=== PATIENT | male | born 1965 | race Caucasian/White ===

== ENCOUNTER 2018-09-26 05:34 | Inpatient (IN) | payer SELFPAY ==
[~2018-09-26] VITALS: Ht 182.9 cm; Wt 99.8 kg
--- NOTE | 2018-09-26 05:43 | ED.ADGEN ---
Past History Past Medical History: Asthma, Hypertension Past Medical History Hx. of VSD- closed spontaneously? Smoking: Non-smoker Adult General Chief Complaint Chief Complaint ",, My made me come in..... I ve been having chest pain since last night... some what constant... 3-11/30.. Lt sided.. 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 ",, " I know I probably should have come in earlier... 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 sided chest pain. Pt. pain or discomfort has been constant since the [employer] ball game last night. Pain seems to be somewhat related to movement. Patient denies any trauma. Patient denies any previous episodes of angina or cardiac disease. Reportedly had a normal stress echo approximately 2 years ago. Patient does have history of previous Ventral septal defect that spontaneously closed as an adult. Patient does have a history of asthma. Recent travel to [place] on a [employer] job. 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 Did not travel outside of hospital to surrounding area while in [place]. Patient normally follows with Dr. Choudhary. No hx of trauma. Patient is extremely allergic to cats. very concerned because he never has complaints about medical issues. Review of Systems Review of Systems Constitutional: Denies fever or chills [] Eyes: Denies change in visual acuity, redness, or eye pain [] HENT: Denies nasal congestion or sore throat [] Respiratory: History of unproductive cough and some wheezing Cardiovascular: No additional information not addressed in HPI [] GI: Denies abdominal pain, nausea, vomiting, bloody stools or diarrhea [] : Denies dysuria or hematuria [] Musculoskeletal: Denies back pain or joint pain [] Integument: Denies rash or skin lesions [] Neurologic: Denies headache, focal weakness or sensory changes [] Endocrine: Denies polyuria or polydipsia [] All other systems were reviewed and found to be within normal limits, except as documented in this note. Family History Family History Noncontributory Current Medications Current Medications Current Medications Medications (Trade) Dose Ordered Sig/Aurora Start Time Stop Time Status Last Admin Dose Admin Albuterol/ Ipratropium (Duoneb) 3 ml RTQID 09/26/18 08:00 09/27/18 07:59 Aspirin (Children'S Aspirin) 81 mg DAILY 09/26/18 09:00 Famotidine (Pepcid) 20 mg DAILY 09/26/18 09:00 09/26/18 07:55 20 MG Ketorolac Tromethamine (Toradol 30mg Vial) 30 mg 1X ONCE 09/26/18 07:30 09/26/18 07:38 DC 09/26/18 07:56 30 MG Lactated Ringer's 1,000 ml @ 1,000 mls/hr Q1H 09/26/18 07:00 09/26/18 07:59 DC 09/26/18 06:45 1,000 MLS/HR Ondansetron HCl (Zofran) 4 mg PRN Q4HRS PRN 09/26/18 07:30 09/27/18 07:29 See nursing for home medications Allergies Allergies Allergies Coded Allergies Type Severity Reaction Last Updated Verified No Known Drug Allergies 09/26/18 No Severe allergy to cats Physical Exam Physical Exam Constitutional: Moderately acute distress, non-toxic appearance. [] HENT: Normocephalic, atraumatic, bilateral external ears normal, oropharynx moist, no oral exudates, nose normal. Lawrence short. Eyes: PERRLA, EOMI, conjunctiva normal, no discharge. Glasses Neck: Normal range of motion, no tenderness, supple, no stridor. [] Cardiovascular:Heart rate regular rhythm, no murmur [] Lungs & Thorax: Bilateral breath sounds equal apexes and a few scattered wheezes on auscultation [] Abdomen: Bowel sounds normal, soft, no tenderness, no masses, no pulsatile masses. [] Skin: Warm, dry, no erythema, no rash. [] Back: No tenderness, no CVA tenderness. [] Extremities: No tenderness, no cyanosis, no clubbing, ROM intact, no edema. [] No cording appreciated Neurologic: Alert and oriented X 3, normal motor function, normal sensory function, no focal deficits noted. [] Psychologic: Affect anxious, judgement normal, mood normal. [] Current Patient Data Vital Signs Vital Signs Date Time Temp Pulse Resp B/P (MAP) Pulse Ox O2 Delivery O2 Flow Rate FiO2 09/26/18 07:35 64 18 144/87 (106) 97 Room Air Lab Results Laboratory Tests Test 09/26/18 05:47 White Blood Count 6.5 x10^3/uL (4.0-11.0) Red Blood Count 5.26 x10^6/uL (4.30-5.70) Hemoglobin 15.4 g/dL (13.0-17.5) Hematocrit 45.3 % (39.0-53.0) Mean Corpuscular Volume 86 fL (79-100) Mean Corpuscular Hemoglobin 29 pg (25-35) Mean Corpuscular Hemoglobin Concent 34 g/dL (31-37) Red Cell Distribution Width 13.2 % (11.5-14.5) Platelet Count 259 x10^3/uL (140-400) Neutrophils (%) (Auto) 45 % (31-73) Lymphocytes (%) (Auto) 37 % (24-48) Monocytes (%) (Auto) 7 % (0-9) Eosinophils (%) (Auto) 9 % (0-3) H Basophils (%) (Auto) 2 % (0-3) Neutrophils # (Auto) 2.9 x10^3uL (1.8-7.7) Lymphocytes # (Auto) 2.4 x10^3/uL (1.0-4.8) Monocytes # (Auto) 0.4 x10^3/uL (0.0-1.1) Eosinophils # (Auto) 0.6 x10^3/uL (0.0-0.7) Basophils # (Auto) 0.1 x10^3/uL (0.0-0.2) Prothrombin Time 9.8 SEC (9.4-11.4) Prothrombin Time INR 1.0 (0.9-1.1) PTT 27 SEC (23-33) D-Dimer (Yoli) 0.19 mg/L (0.00-0.50) Sodium Level 143 mmol/L (136-145) Potassium Level 3.9 mmol/L (3.5-5.1) Chloride Level 106 mmol/L (98-107) Carbon Dioxide Level 27 mmol/L (21-32) Anion Gap 10 (6-14) Blood Urea Nitrogen 20 mg/dL (8-26) Creatinine 1.1 mg/dL (0.7-1.3) Estimated GFR (Cockcroft-Gault) 70.3 Glucose Level 106 mg/dL (70-99) H Calcium Level 9.3 mg/dL (8.5-10.1) Magnesium Level 2.3 mg/dL (1.8-2.4) Total Bilirubin 0.3 mg/dL (0.2-1.0) Direct Bilirubin 0.1 mg/dL (0.0-0.2) Aspartate Amino Transferase (AST) 26 U/L (15-37) Alanine Aminotransferase (ALT) 44 U/L (16-63) Alkaline Phosphatase 86 U/L (46-116) Creatine Kinase 121 U/L (39-308) Troponin I Quantitative < 0.017 ng/mL (0-0.055) ON-Njt-T-Type Natriuretic Peptide 9 pg/mL (0-124) Total Protein 6.8 g/dL (6.4-8.2) Albumin 3.7 g/dL (3.4-5.0) Lipase 135 U/L (73-393) EKG EKG My interpretation of EKG shows a sinus rhythm at 72 bpm. No findings of acute STEMI with contralateral changes.[] Radiology/Procedures Radiology/Procedures My interpretation of chest x-ray shows no acute cardiopulmonary findings. There is possibly some blunting a left closed phrenic angle, but not completely visualized by CXR. Course & Med Decision Making Course & Med Decision Making Pertinent Labs and Imaging studies reviewed. (See chart for details). Discussed presentation, testing and treatment plan with , Will add for serial enzymes and cardiology consult. [] Final Impression Final Impression 1. Chest Pain [] 2. HTN 3. Hx. VSD 4. Asthma 5. 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 Dragon Disclaimer This chart was dictated in whole or in part using Voice Recognition software in a busy, high-work load, and often noisy Emergency Department environment. It may contain unintended and wholly unrecognized errors or omissions. Discharge Summary Visit Information Final Diagnosis Problems Medical Problems: (1) Chest pain Status: Acute Brief Hospital Course Allergies Allergies Coded Allergies Type Severity Reaction Last Updated Verified No Known Drug Allergies 09/26/18 No Vital Signs Vital Signs Date Time Temp Pulse Resp B/P (MAP) Pulse Ox O2 Delivery O2 Flow Rate FiO2 09/26/18 07:35 64 18 144/87 (106) 97 Room Air Lab Results Laboratory Tests Test 09/26/18 05:47 White Blood Count 6.5 x10^3/uL (4.0-11.0) Red Blood Count 5.26 x10^6/uL (4.30-5.70) Hemoglobin 15.4 g/dL (13.0-17.5) Hematocrit 45.3 % (39.0-53.0) Mean Corpuscular Volume 86 fL (79-100) Mean Corpuscular Hemoglobin 29 pg (25-35) Mean Corpuscular Hemoglobin Concent 34 g/dL (31-37) Red Cell Distribution Width 13.2 % (11.5-14.5) Platelet Count 259 x10^3/uL (140-400) Neutrophils (%) (Auto) 45 % (31-73) Lymphocytes (%) (Auto) 37 % (24-48) Monocytes (%) (Auto) 7 % (0-9) Eosinophils (%) (Auto) 9 % (0-3) Basophils (%) (Auto) 2 % (0-3) Neutrophils # (Auto) 2.9 x10^3uL (1.8-7.7) Lymphocytes # (Auto) 2.4 x10^3/uL (1.0-4.8) Monocytes # (Auto) 0.4 x10^3/uL (0.0-1.1) Eosinophils # (Auto) 0.6 x10^3/uL (0.0-0.7) Basophils # (Auto) 0.1 x10^3/uL (0.0-0.2) Prothrombin Time 9.8 SEC (9.4-11.4) Prothromb Time International Ratio 1.0 (0.9-1.1) Activated Partial Thromboplast Time 27 SEC (23-33) D-Dimer (Yoli) 0.19 mg/L (0.00-0.50) Sodium Level 143 mmol/L (136-145) Potassium Level 3.9 mmol/L (3.5-5.1) Chloride Level 106 mmol/L (98-107) Carbon Dioxide Level 27 mmol/L (21-32) Anion Gap 10 (6-14) Blood Urea Nitrogen 20 mg/dL (8-26) Creatinine 1.1 mg/dL (0.7-1.3) Estimated GFR (Cockcroft-Gault) 70.3 Glucose Level 106 mg/dL (70-99) Calcium Level 9.3 mg/dL (8.5-10.1) Magnesium Level 2.3 mg/dL (1.8-2.4) Total Bilirubin 0.3 mg/dL (0.2-1.0) Direct Bilirubin 0.1 mg/dL (0.0-0.2) Aspartate Amino Transf (AST/SGOT) 26 U/L (15-37) Alanine Aminotransferase (ALT/SGPT) 44 U/L (16-63) Alkaline Phosphatase 86 U/L (46-116) Creatine Kinase 121 U/L (39-308) Troponin I Quantitative < 0.017 ng/mL (0-0.055) BM-Vxf-A-Type Natriuretic Peptide 9 pg/mL (0-124) Total Protein 6.8 g/dL (6.4-8.2) Albumin 3.7 g/dL (3.4-5.0) Lipase 135 U/L (73-393) Brief Hospital Course Mr. Headley is a 53 old male who presented with chest pain and HTN. Admitted Dr. Partida- and cardiology consult. Discharge Information Condition at Discharge: Stable Dischare Medications Current Medications Aspirin (Children'S Aspirin) 324 mg 1X ONCE PO Last administered on 09/26/18at 06:44; Admin Dose 324 MG; Start 09/26/18 at 07:00; Stop 09/26/18 at 07:01; Status DC Lactated Ringer's 1,000 ml @ 1,000 mls/hr Q1H IV Last administered on at 06:45; Admin Dose 1,000 MLS/HR; Start 09/26/18 at 07:00; Stop 09/26/18 at 07: 59; Status DC Ondansetron HCl (Zofran) 4 mg PRN Q4HRS PRN IV NAUSEA/VOMITING; Start 09/26/18 at 07:30; Stop 09/27/18 at 07:29 Albuterol/ Ipratropium (Duoneb) 3 ml RTQID NEB ; Start 09/26/18 at 08:00; Stop at 07:59 Aspirin (Children'S Aspirin) 81 mg DAILY PO ; Start 09/26/18 at 09:00 Famotidine (Pepcid) 20 mg DAILY PO Last administered on 09/26/18at 07:55; Admin Dose 20 MG; Start 09/26/18 at 09:00 Ketorolac Tromethamine (Toradol 30mg Vial) 30 mg 1X ONCE IV Last administered on 09/26/18at 07:56; Admin Dose 30 MG; Start 09/26/18 at 07:30; Stop 09/26/18 at 07: 38; Status DC KATHIA MARTINEZ MD Sep 26, 2018 05:42
--- NOTE | 2018-09-26 06:12 | EKG ---
[address] [address] Test Date: 2018-09-26 Test Time: 05:56:57 Pat Name: KARYNA TIM Department: Room: Gender: M Bottling Line Operator: DELFINO : 1965 Requested By: KATHIA MARTINEZ Order Number: [id number] Reading MD: Michael Camilo MD Measurements Intervals [place] Rate: 72 P: 54 NM: 168 QRS: 44 QRSD: 100 T: 38 QT: 378 QTc: 420 Interpretive Statements SINUS RHYTHM Electronically Signed On 09-26-2018 10:19:06 TELEPHONE APPOINTMENT CLERK by Michael Camilo MD
[2018-09-26 06:17] LABS: BASO # 0.1 x10^3/uL (0.0-0.2); BASO % 2 % (0-3); EOS # 0.6 x10^3/uL (0.0-0.7); EOS % 9 % (0-3); HEMATOCRIT 45.3 % (39.0-53.0); HEMOGLOBIN 15.4 g/dL (13.0-17.5); LYMPH # 2.4 x10^3/uL (1.0-4.8); LYMPH % 37 % (24-48); MEAN CORPUSCULAR HEMOGLOBIN 29 pg (25-35); MEAN CORPUSCULAR HGB CONC 34 g/dL (31-37); MEAN CORPUSCULAR VOLUME 86 fL (79-100); MONO # 0.4 x10^3/uL (0.0-1.1); MONO % 7 % (0-9); NEUT # 2.9 x10^3uL (1.8-7.7); NEUT % 45 % (31-73); PLATELET COUNT 259 x10^3/uL (140-400); RED BLOOD COUNT 5.26 x10^6/uL (4.30-5.70); RED CELL DISTRIBUTION WIDTH 13.2 % (11.5-14.5); WHITE BLOOD COUNT 6.5 x10^3/uL (4.0-11.0)
[2018-09-26 06:32] LABS: ALBUMIN 3.7 g/dL (3.4-5.0); CALCIUM 9.3 mg/dL (8.5-10.1); CREATININE 1.1 mg/dL (0.7-1.3); DIRECT BILIRUBIN 0.1 mg/dL (0.0-0.2); GFR 70.3; MAGNESIUM 2.3 mg/dL (1.8-2.4); POTASSIUM 3.9 mmol/L (3.5-5.1); TOTAL BILIRUBIN 0.3 mg/dL (0.2-1.0); TOTAL PROTEIN 6.8 g/dL (6.4-8.2)
[2018-09-26] MEDS ORDERED: ASPIRIN 81 MG TAB.CHEW PO ONE (07:00)
[2018-09-26] MEDS ORDERED: IV RINGERS SOLUTION,LACTATED 1,000 ML IV SCH (07:00)
[2018-09-26] MEDS ORDERED: ONDANSETRON PF 4 MG/2 ML VIAL. IV PRN (07:30)
[2018-09-26] MEDS ORDERED: KETOROLAC 30 MG/ML VIAL. IV ONE (07:30)
[2018-09-26] MEDS: IPRATRPIUM/ALBUTEROL 0.5/2.5MG 3 ML NEBU. NEB SCH ×2 (08:00→09:54)
--- NOTE | 2018-09-26 08:05 | RAD ---
Examination: CHEST PA LATERAL History: Chest pain and pressure. Hx asthma Comparison/Correlation: 06/12/2016 two-view chest x-ray exam Findings: PA and lateral views of the chest were obtained. Heart size and pulmonary vasculature are normal. No infiltrate or effusion. Bony structures are intact. Impression: No active disease. Electronically signed by: Fito Fuentes MD (09/26/2018 8:00 AM) [facility]
[2018-09-26 08:16] VITALS: BP 151/91
[2018-09-26 08:34] LABS: BARBITURATES NEG (NEG); BENZODIAZEPINES NEG (NEG); CANNABINOIDS NEG (NEG); COCAINE NEG (NEG); METHADONE NEG (NEG); OPIATES NEG (NEG); PHENCYCLIDINE NEG (NEG)
[2018-09-26 08:36] LABS: AMPHETAMINE/METHAMPHETAMINE NEG (NEG)
[2018-09-26 08:47] LABS: BACTERIA,URINE 0 /HPF (0-FEW); BILIRUBIN,URINE NEG (NEG); CLARITY,URINE CLEAR; COLOR,URINE YELLOW; GLUCOSE,URINE NEG (NEG); NITRITE,URINE NEG (NEG); RBC,URINE 0 /HPF (0-2); UROBILINOGEN,URINE 0.2 mg/dL (0.2 mg/dL); WBC,URINE 0 /HPF (0-4)
[2018-09-26] MEDS ORDERED: FAMOTIDINE 20 MG TABLET PO SCH (09:00)
[2018-09-26] MEDS ORDERED: ASPIRIN 81 MG TAB.CHEW PO SCH (09:00)
--- NOTE | 2018-09-26 09:29 | PDOC2 ---
CONSULT Date of Admission DATE: 09/26/18 TIME: : Reason for Consult: CP Problem List Problems Medical Problems: (1) Chest pain Status: Acute History of Present Illness Mr Headley is a 53 year old male who presented with complaints of chest pain starting last evening after the [employer]. He describes a tightness in the mid sternal area which is unrelated to exertion and non radiating and has been constant since last night. He reports prior cardiac evaluation approximately 2 years ago which was negative. He has a history of asthma and reports that he has shortness of breath off and on related to this. Shortness of breath improved with rescue inhaler which he reports using at least twice daily despite his maintenance medications. He denies any nausea, vomiting, diaphoresis. He denies congestive symptoms, palpitations, lightheadedness or syncope. He works out in the gym 3x per week without symptoms. He has previously followed with [facility] for cardiology. Past Medical History Echo 06/17/16 Mild concentric LVH. Normal systolic function with EF 55-60%. Proximal ascending aorta appears mildly dilated at 3.6cm. All valves structurally and functionally normal without significant stenosis or regurgitation. Stress echo 06/17/16 Negative for ischemia appropriate increase in ejection fraction stress ECG negative for ischemia exercise tolerance of 9.0 minutes no arrhythmia with stress adequate heart rate response Hypertensive blood pressure response no chest pain with exercise Cardiovascular: hyperipidemia Pulmonary: Asthma GI: GERD Past Surgical History right knee, right shoulder, spermatocele Family History no premature coronary disease Social History non smoker, no significant ETOH, no illicit drugs Current Medications Current Medications Aspirin (Children'S Aspirin) 324 mg 1X ONCE PO Last administered on 09/26/18at 06:44; Start 09/26/18 at 07:00; Stop 09/26/18 at 07:01; Status DC Lactated Ringer's 1,000 ml @ 1,000 mls/hr Q1H IV Last administered on at 06:45; Start 09/26/18 at 07:00; Stop 09/26/18 at 07:59; Status DC Ondansetron HCl (Zofran) 4 mg PRN Q4HRS PRN IV NAUSEA/VOMITING; Start 09/26/18 at 07:30; Stop 09/26/18 at 09:25; Status DC Albuterol/ Ipratropium (Duoneb) 3 ml RTQID NEB ; Start 09/26/18 at 08:00; Stop at 09:25; Status DC Aspirin (Children'S Aspirin) 81 mg DAILY PO ; Start 09/26/18 at 09:00; Stop at 09:25; Status DC Famotidine (Pepcid) 20 mg DAILY PO Last administered on 09/26/18at 07:55; Start 09/26/18 at 09:00; Stop 09/26/18 at 09:25; Status DC Ketorolac Tromethamine (Toradol 30mg Vial) 30 mg 1X ONCE IV Last administered on 09/26/18at 07:56; Start 09/26/18 at 07:30; Stop 09/26/18 at 07:38; Status DC Allergies: Coded Allergies: No Known Drug Allergies (Unverified , 09/26/18) Review of System as per HPI or negative General: Alert, Oriented X3, Cooperative, No acute distress HEENT: Atraumatic, EOMI, Mucous membr. moist/pink Lungs: Other (occ expiratory wheeze, otherwise clear) Heart: Regular rate, Normal S1, Normal S2, No murmurs, Other (no gallops, clicks or rubs) Abdomen: Normal bowel sounds, Soft, No tenderness Extremities: No cyanosis, No edema, Normal pulses Neuro: Normal speech, Strength at 5/5 X4 ext Psych/Mental Status: Mental status NL, Mood NL VITALS Vital Signs Date Time Temp Pulse Resp B/P (MAP) Pulse Ox O2 Delivery O2 Flow Rate FiO2 09/26/18 07:35 64 18 144/87 (106) 97 Room Air Labs Laboratory Tests Test 09/26/18 05:47 09/26/18 07:50 White Blood Count 6.5 x10^3/uL (4.0-11.0) Red Blood Count 5.26 x10^6/uL (4.30-5.70) Hemoglobin 15.4 g/dL (13.0-17.5) Hematocrit 45.3 % (39.0-53.0) Mean Corpuscular Volume 86 fL (79-100) Mean Corpuscular Hemoglobin 29 pg (25-35) Mean Corpuscular Hemoglobin Concent 34 g/dL (31-37) Red Cell Distribution Width 13.2 % (11.5-14.5) Platelet Count 259 x10^3/uL (140-400) Neutrophils (%) (Auto) 45 % (31-73) Lymphocytes (%) (Auto) 37 % (24-48) Monocytes (%) (Auto) 7 % (0-9) Eosinophils (%) (Auto) 9 % (0-3) Basophils (%) (Auto) 2 % (0-3) Neutrophils # (Auto) 2.9 x10^3uL (1.8-7.7) Lymphocytes # (Auto) 2.4 x10^3/uL (1.0-4.8) Monocytes # (Auto) 0.4 x10^3/uL (0.0-1.1) Eosinophils # (Auto) 0.6 x10^3/uL (0.0-0.7) Basophils # (Auto) 0.1 x10^3/uL (0.0-0.2) Prothrombin Time 9.8 SEC (9.4-11.4) Prothromb Time International Ratio 1.0 (0.9-1.1) Activated Partial Thromboplast Time 27 SEC (23-33) D-Dimer (Yoli) 0.19 mg/L (0.00-0.50) Sodium Level 143 mmol/L (136-145) Potassium Level 3.9 mmol/L (3.5-5.1) Chloride Level 106 mmol/L (98-107) Carbon Dioxide Level 27 mmol/L (21-32) Anion Gap 10 (6-14) Blood Urea Nitrogen 20 mg/dL (8-26) Creatinine 1.1 mg/dL (0.7-1.3) Estimated GFR (Cockcroft-Gault) 70.3 Glucose Level 106 mg/dL (70-99) Calcium Level 9.3 mg/dL (8.5-10.1) Magnesium Level 2.3 mg/dL (1.8-2.4) Total Bilirubin 0.3 mg/dL (0.2-1.0) Direct Bilirubin 0.1 mg/dL (0.0-0.2) Aspartate Amino Transf (AST/SGOT) 26 U/L (15-37) Alanine Aminotransferase (ALT/SGPT) 44 U/L (16-63) Alkaline Phosphatase 86 U/L (46-116) Creatine Kinase 121 U/L (39-308) Troponin I Quantitative < 0.017 ng/mL (0-0.055) GF-Ehh-Y-Type Natriuretic Peptide 9 pg/mL (0-124) Total Protein 6.8 g/dL (6.4-8.2) Albumin 3.7 g/dL (3.4-5.0) Lipase 135 U/L (73-393) Urine Collection Type Void Urine Color Yellow Urine Clarity Clear Urine pH 6.0 Urine Specific Sun 1.015 Urine Protein Neg (NEG-TRACE) Urine Glucose (UA) Neg mg/dL (NEG) Urine Ketones (Stick) Neg mg/dL (NEG) Urine Blood Neg (NEG) Urine Nitrite Neg (NEG) Urine Bilirubin Neg (NEG) Urine Urobilinogen Dipstick 0.2 mg/dL (0.2 mg/dL) Urine Leukocyte Esterase Neg (NEG) Urine RBC 0 /HPF (0-2) Urine WBC 0 /HPF (0-4) Urine Squamous Epithelial Cells None /LPF Urine Bacteria 0 /HPF (0-FEW) Urine Opiates Screen Neg (NEG) Urine Methadone Screen Neg (NEG) Urine Barbiturates Neg (NEG) Urine Phencyclidine Screen Neg (NEG) Urine Amphetamine/Methamphetamine Neg (NEG) Urine Benzodiazepines Screen Neg (NEG) Urine Cocaine Screen Neg (NEG) Urine Cannabinoids Screen Neg (NEG) Urine Ethyl Alcohol Neg (NEG) Images tele - sinus rhythm, no significant arrhythmias EKG - sinus rhythm, no acute ischemic changes CXR - Impression: No active disease. Assessment/Plan 1. Chest pain, atypical- EKG without acute ischemic changes, initial CE negative. Serial Reema. check echo and lipids. no beta angelo due to borderline bradycardia and asthma. If results without significant abnormalities , plan for outpatient stress testing. 2. Hx VSD - not noted on most recent echo. 3. Mild LVH and mild ascending aortic dilatation at 3.6 cm - await echo 3. asthma with recent URI 5. HLD - check lipids KURT COLMENARES APRN Sep 26, 2018 09:29
[2018-09-26] MEDS ORDERED: ALBU2.5V8 INH (09:58)
[2018-09-26] MEDS ORDERED: FLUT1DIS5 IH (09:58)
[2018-09-26] MEDS ORDERED: IPRATRPIUM/ALBUTEROL 0.5/2.5MG 3 ML NEBU. NEB PRN (10:00)
[2018-09-26 12:16] VITALS: BP 149/92
[2018-09-26 13:18] LABS: THYROID STIM HORMONE (TSH) 4.499 uIU/mL (0.358-3.740)
--- NOTE | 2018-09-26 15:26 | CARD ---
MR#: [id number] Date of Study: 09/26/2018 Ordering Physician: KURT COLMENARES, Referring Physician: BENNIE LUCAS Tech: Radha Johnson RDCS APPROVED REPORT EXAM: Two-dimensional and M-mode echocardiogram with Doppler and color Doppler. Other Information Quality : Good INDICATION Chest Pain 2D DIMENSIONS RVDd2.8 (2.9-3.5cm)Left Atrium(2D)3.3 (1.6-4.0cm) IVSd1.3 (0.7-1.1cm)Aortic Root(2D)3.3 (2.0-3.7cm) LVDd5.0 (3.9-5.9cm)LVOT Diameter2.2 (1.8-2.4cm) PWd1.2 (0.7-1.1cm)LVDs4.3 (2.5-4.0cm) FS (%) 25.0 %SV33.4 ml LVEF(%)50.0 (>50%) Aortic Valve AoV Peak Benjamín.116.4cm/sAoV VTI18.8cm AO Peak GR.5.4mmHgLVOT Peak Benjamín.124.2cm/s LVOT VTI 20.49cmAO Mean GR.3mmHg ELIZ (VMAX)3.30ns6ELV (VTI)3.97cm2 Mitral Valve MV E Cvfeyaqk86.9cm/sMV DECEL SKYX509dm MV A Exdboruo62.2cm/sE/A Ratio0.7 Pulmonary Vein S1 Nziqyadv93.7cm/sD2 Bqgvwkzr15.5cm/s LEFT VENTRICLE The left ventricle is normal size. There is mild concentric left ventricular hypertrophy. The left ve ntricular systolic function is normal. The Ejection Fraction is 55%. There is normal LV segmental wal l motion. Transmitral Doppler flow pattern is Grade I-abnormal relaxation pattern. RIGHT VENTRICLE The right ventricle is normal size. The right ventricular systolic function is normal. ATRIA The left atrium size is normal. The right atrium size is normal. The interatrial septum is intact wit h no evidence for an atrial septal defect or patent foramen ovale as noted on 2-D or Doppler imaging. AORTIC VALVE The aortic valve is calcified but opens well. Doppler and Color Flow revealed no significant aortic r egurgitation. There is no significant aortic valvular stenosis. MITRAL VALVE The mitral valve is calcified but opens well. There is no evidence of mitral valve prolapse. There is no mitral valve stenosis. Doppler and Color Flow revealed no mitral valve regurgitation noted. TRICUSPID VALVE The tricuspid valve is normal in structure and function. Doppler and Color Flow revealed no tricuspid valve regurgitation noted. There is no tricuspid valve stenosis. PULMONIC VALVE The pulmonic valve is not well visualized. Doppler and Color Flow revealed no pulmonic valvular regur gitation. There is no pulmonic valvular stenosis. GREAT VESSELS The aortic root is normal in size. The ascending aorta is normal in size. The IVC is normal in size a nd collapses >50% with inspiration. PERICARDIAL EFFUSION There is no evidence of significant pericardial effusion. Critical Notification Critical Value: No <Conclusion> The left ventricular systolic function is normal. The Ejection Fraction is 55%. There is normal LV segmental wall motion. Transmitral Doppler flow pattern is Grade I-abnormal relaxation pattern. No significant valvular abnormalities. There is no evidence of significant pericardial effusion. Signed by : Gian Crowley, Electronically Approved : 09/26/2018 15:24:21
--- NOTE | 2018-09-26 16:50 | SSS ---
ADMIT DATE: 09/26/2018 HISTORY OF PRESENT ILLNESS: The patient is a 53-year-old male patient, who presented to the Emergency Room with a complaint of chest pain that started last evening after the [place], he describes tightness in his midsternal area, which is unrelated to exertion, nonradiating and has been constant since last night. He reports prior cardiac evaluation approximately years ago that was negative. He has a history of asthma and reports that his shortness of breath off and on related to this. Shortness of breath improved with rescue inhalers, which he reports using at least twice daily despite his maintenance medication. Denied any nausea, vomiting, diaphoresis. He denied any congestive symptoms, palpitation, lightheadedness or syncope. He works out in the gym 3 times a week without symptoms. PAST MEDICAL HISTORY: Significant for bronchial asthma, apparently has had an echocardiogram done in 06/17/2016, which showed mild concentric left ventricular hypertrophy with normal systolic function with an ejection fraction of 55-60%. Stress echo done, which was negative for ischemia. He has hyperlipidemia, gastroesophageal reflux disease. PAST SURGICAL HISTORY: Significant for right knee, right shoulder and spermatocele. FAMILY HISTORY: No history of premature coronary artery disease. SOCIAL HISTORY: He is , does not smoke, drinks alcohol occasionally, but does not use any illicit drugs. He has 2 sons. 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 ALLERGIES: He has no known drug allergies. MEDICATIONS: He is currently on albuterol sulfate 1 puff every 4 hours as needed and he is also on Advair Diskus 500/50 one puff twice a day. REVIEW OF SYSTEMS: As per history of present illness. PHYSICAL EXAMINATION: GENERAL: On arrival to the Emergency Room, he looked well and was clearly in no apparent respiratory distress. VITAL SIGNS: His heart rate was 64, blood pressure was 124/91, temperature was 98, respiratory rate was 18 and oxygen saturation was 96%. HEAD, EYES, EARS, NOSE, AND THROAT: Showed normocephalic, atraumatic. NECK: Supple. HEART: Showed normal first and second heart sounds with no gallop, rub or murmur. CHEST: Clear to auscultation. No crepitation or rhonchi. ABDOMEN: Distended, soft, nontender. No guarding or rigidity. No organomegaly. All hernial orifice intact. Bowel sounds normal. NEUROLOGIC: He was awake, alert, responding appropriately. All cranial nerves intact. The patient has 3 sets of cardiac enzyme, all of them showed troponin to be less than 0.017. He was seen in consultation by the Cardiology team and has had an echocardiogram, which basically showed that his left ventricular systolic function is normal, ejection fraction was 55%. He has normal left ventricular segmental wall motion. Transmitral Doppler flow pattern showed grade 1 abnormal relaxation pattern. No significant valvular abnormalities and no evidence of significant pericardial effusion. ASSESSMENT AND PLAN: Basically, the patient was discharged home to follow with his primary care physician. FINAL DISCHARGE DIAGNOSES: Atypical chest pain, bronchial asthma, hyperlipidemia as well as gastroesophageal reflux disease. BENNIE LUCAS MD DR: CRISTOFER/luis JOB#: [id number] / [id number]
== END 2018-09-26 16:20 | disposition home or self-care (01) | DRG 313 ==
LOC: ER 05:34 → ICU 07:55 → ER 07:55 → ICU 10:02
PROVIDERS: ADMIT Internal Medicine; ATTEND Internal Medicine
DX: R07.89 Other chest pain (principal); E78.5 Hyperlipidemia, unspecified; I10 Essential (primary) hypertension; I11.9 Hypertensive heart disease without heart failure; I77.810 Thoracic aortic ectasia; J45.909 Unspecified asthma, uncomplicated; K21.9 Gastro-esophageal reflux disease without esophagitis
CPT/HCPCS: 36415; 71046; 80048; 80061; 80076; 80307; 81001; 82550; 83690; 83735; 83880; 84443; 84484; 85025; 85379; 85610; 85730; 87641; 93005; 93306; 96360; J1885; J7120; 99285-25

== ENCOUNTER 2021-10-05 13:56 | Emergency (ER) | payer BC ==
[~2021-10-05] VITALS: Ht 177.8 cm; Wt 88.6 kg
[~2021-10-05 13:56] MED LIST: ALBU2.5V8 INH; FLUT1DIS5 IH
--- NOTE | 2021-10-05 14:05 | PHYS DOC ---
Past History Past Medical History: Asthma, Hypertension Past Surgical History: No Surgical History Smoking: Non-smoker Alcohol Use: Occasionally Drug Use: None Adult General Chief Complaint Chief Complaint: CHEST PAIN [facility] [facility] [employer] [facility] HPI Patient is a 56-year-old male presenting for chest pain. Onset was 48 hours ago without any inciting event, trauma, ingestion, mechanism of injury or other exposure. Patient took Tums which provided some relief yesterday. Physical exertion makes worse. Pain is described as substernal pressure that does not radiate, 10/10 severity during episodes. Admits these episodes correlate with physical exertion. States any time he has physically exerted himself he exper iences symptoms prompting him to stop and regain his breath. 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 On arrival, EMS report patient was hemodynamically stable with once nonconcerning EKG. He was given 324 mg aspirin and subsequently transported to our facility for evaluation. On arrival, patient asymptomatic. He is concerned as he has history of hypertension for which he takes lisinopril, no other concerning comorbid conditions or personal history of coronary artery disease. Does disclose he has history of VSD that spontaneously resolved approximately 8 years ago. He has had a history of numerous echocardiograms and stress testing with most recent being 5 and 7 years ago resp ectively. No prior cardiac intervention. Denies any tobacco or illicit drug use, admits occasional alcohol use. No pertinent early cardiac disease within the family reported Review of Systems Review of Systems Fourteen body systems of review of systems have been reviewed. See HPI for pertinent positives and negative responses, other terry all other systems are negative, non-pertinent or non-contributory Allergies Allergies Allergies Coded Allergies Type Severity Reaction Last Updated Verified No Known Drug Allergies 09/26/18 No Physical Exam Physical Exam Constitutional: Well developed, well nourished, no acute distress, non-toxic appearance. HENT: Normocephalic, atraumatic, bilateral external ears normal, oropharynx moist, no oral exudates, nose normal. Eyes: PERRLA, EOMI, conjunctiva normal, no discharge. Neck: Normal range of motion, no tenderness, supple, no stridor. Cardiovascular: Heart rate regular, sinus rhythm, no murmurs rubs or gallops Lungs & Thorax: Bilateral breath sounds clear to auscultation Abdomen: Bowel sounds normal, soft, no tenderness, no masses, no pulsatile masses. Nonsurgical abdomen, no peritoneal signs Skin: Warm, dry, no erythema, no rash. Back: No tenderness, no CVA tenderness. Extremities: No tenderness, no cyanosis, no clubbing, ROM intact, no edema. Neurologic: Alert and oriented X 3, grossly normal motor & sensory function, no focal deficits noted. Psychologic: Affect normal, judgement normal, mood normal. Current Patient Data Vital Signs Vital Signs Date Time Temp Pulse Resp B/P (MAP) Pulse Ox O2 Delivery O2 Flow Rate FiO2 10/05/21 14:09 82 20 168/109 (128) 99 Room Air Vital Signs Date Time Temp Pulse Resp B/P (MAP) Pulse Ox O2 Delivery O2 Flow Rate FiO2 10/05/21 14:09 82 20 168/109 (128) 99 Room Air Lab Results Laboratory Tests Test 10/05/21 14:01 White Blood Count 6.0 x10^3/uL Red Blood Count 4.96 x10^6/uL Hemoglobin 14.6 g/dL Hematocrit 43.1 % Mean Corpuscular Volume 87 fL Mean Corpuscular Hemoglobin 30 pg Mean Corpuscular Hemoglobin Concent 34 g/dL Red Cell Distribution Width 13.8 % Platelet Count 252 x10^3/uL Neutrophils (%) (Auto) 59 % Lymphocytes (%) (Auto) 29 % Monocytes (%) (Auto) 8 % Eosinophils (%) (Auto) 4 % Basophils (%) (Auto) 1 % Neutrophils # (Auto) 3.6 x10^3uL Lymphocytes # (Auto) 1.7 x10^3/uL Monocytes # (Auto) 0.5 x10^3/uL Eosinophils # (Auto) 0.2 x10^3/uL Basophils # (Auto) 0.1 x10^3/uL Sodium Level 137 mmol/L Potassium Level 4.1 mmol/L Chloride Level 103 mmol/L Carbon Dioxide Level 27 mmol/L Anion Gap 7 Blood Urea Nitrogen 18 mg/dL Creatinine 1.0 mg/dL Estimated GFR (Cockcroft-Gault) 77.6 Glucose Level 100 mg/dL Calcium Level 9.5 mg/dL Troponin I High Sensitivity 43 ng/L EKG EKG EKG ordered and interpreted by myself at 1414 hrs. is sinus rhythm at 72 bpm, unremarkable intervals, no axis deviation, no acute ischemic findings, no STEMI Radiology/Procedures Radiology/Procedures XR CHEST 1V CLINICAL INDICATIONS: Reason: chest pain / Spl. Instructions: / History: COMPARISON: September 26, 2018. Findings: No acute lung infiltrate or pleural effusion or pulmonary edema or lung mass or pneumothorax is seen. The heart size, pulmonary vasculature, mediastinum and both meghan are unremarkable. IMPRESSION: No acute radiographic abnormality is seen. Electronically signed by: Tadeo Martinez MD (10/05/2021 2:42 PM) [id number] Heart Score C/O Chest Pain: Yes HEART Score for Chest Pain: HEART Score for Chest Pain Response (Comments) Value History Moderately Suspicious 1 ECG Normal 0 Age >45 - < 65 1 Risk Factors 1 or 2 Risk Factors 1 Troponin < Normal Limit 0 Total 3 Risk Factors: Risk Factors: DM, Current or recent (<one month) smoker, HTN, HLP, family history of CAD, obesity. Risk Scores: Risk Factors: DM, Current or recent (<one month) smoker, HTN, HLP, family history of CAD, obesity. Course & Med Decision Making Course & Med Decision Making ABCs unremarkable. I disclosed entirety of ER findings and discussed most likely diagnosis of chest pain, concerning for stable angina. Other diagnoses were discussed with patient such as ACS, pulmonary embolism, pneumonia and other potentially life-threatening diagnoses but all deemed less likely causes of patient's presentation. Plan of care discussed at length with need for close outpatient follow-up to review today's ER visit stressed. Strict return precautions were also discussed at length with good understanding verbalized by patient. Patient understood heart score and proposed diagnosis and even no being recommended to stay for cardiac observation, patient deferred citing he has outpatient archeology faculty member whom he can follow-up with in outpatient setting. As such, patient voiced understanding and agreement with the plan. Patient knows to come back for repeat evaluation if concerning signs or symptoms present prior to outpatient follow-up. Hemodynamically stable, ambulatory and well-appearing at time of disposition. Dragon Disclaimer Dragon Disclaimer This electronic medical record was generated, in whole or in part, using a voice recognition dictation system. Departure Departure: Impression: Primary Impression: Chest pain Disposition: HOME / SELF CARE / HOMELESS Condition: STABLE Referrals: PEPE FATIMA MD (PCP) Additional Instructions: You were seen for chest pain. Your workup did not show any acute abnormalities today, but does not indicate that you do not have underlying cardiovascular disease. You do need to follow up with your primary doctor and potentially a archeology faculty member for further evaluation and treatment. You should return to the ED if you develop worsening chest pain, shortness of breath, fever, abnormal sweating, leg swelling, or any other new or concerning symptoms. Scripts Pantoprazole Sodium (PROTONIX) 20 Mg Tablet.dr 1 TAB PO DAILY for gerd, #30 TAB Prov: TOM KELLER DO 10/05/21 TOM KELLER DO Oct 05, 2021 14:05
[2021-10-05 14:09] VITALS: BP 168/109
--- NOTE | 2021-10-05 14:17 | EKG ---
[address] [address] Test Date: 2021-10-05 Test Time: 14:07:40 Pat Name: KARYNA TIM Department: Room: Gender: M Legal Executive Assistant: BRIDGETT : 1965 Requested By: TOM KELLER Order Number: [id number] Reading MD: Michael Camilo MD Measurements Intervals [place] Rate: 72 P: 47 [place]: 166 QRS: 14 QRSD: 96 T: 20 QT: 358 QTc: 393 Interpretive Statements SINUS RHYTHM Electronically Signed On 10-06-2021 8:20:43 WHEEL SETTER by Michael Camilo MD
[2021-10-05 14:25] LABS: BASO # 0.1 x10^3/uL (0.0-0.2); BASO % 1 % (0-3); EOS # 0.2 x10^3/uL (0.0-0.7); EOS % 4 % (0-3); HEMATOCRIT 43.1 % (39.0-53.0); HEMOGLOBIN 14.6 g/dL (13.0-17.5); LYMPH # 1.7 x10^3/uL (1.0-4.8); LYMPH % 29 % (24-48); MEAN CORPUSCULAR HEMOGLOBIN 30 pg (25-35); MEAN CORPUSCULAR HGB CONC 34 g/dL (31-37); MEAN CORPUSCULAR VOLUME 87 fL (79-100); MONO # 0.5 x10^3/uL (0.0-1.1); MONO % 8 % (0-9); NEUT # 3.6 x10^3uL (1.8-7.7); NEUT % 59 % (31-73); PLATELET COUNT 252 x10^3/uL (140-400); RED BLOOD COUNT 4.96 x10^6/uL (4.30-5.70); RED CELL DISTRIBUTION WIDTH 13.8 % (11.5-14.5)
[2021-10-05 14:33] LABS: CALCIUM 9.5 mg/dL (8.5-10.1); GFR 77.6; POTASSIUM 4.1 mmol/L (3.5-5.1)
--- NOTE | 2021-10-05 14:45 | RAD ---
XR CHEST 1V CLINICAL INDICATIONS: Reason: chest pain / Spl. Instructions: / History: COMPARISON: September 26, 2018. Findings: No acute lung infiltrate or pleural effusion or pulmonary edema or lung mass or pneumothora x is seen. The heart size, pulmonary vasculature, mediastinum and both meghan are unremarkable. IMPRESSION: No acute radiographic abnormality is seen. Electronically signed by: Tadeo Martinez MD (10/05/2021 2:42 PM) [id number]
[2021-10-05] MEDS ORDERED: PANT20TA58 PO (15:05)
== END 2021-10-05 15:15 | disposition home or self-care (01) ==
LOC: ER 13:56
DX: R07.2 Precordial pain (principal); J45.909 Unspecified asthma, uncomplicated; I10 Essential (primary) hypertension
CPT/HCPCS: 36415; 71045; 80048; 84484; 85025; 93005; 99285

== ENCOUNTER 2021-10-13 03:54 | Emergency (ER) | payer BC ==
[~2021-10-13] VITALS: Ht 182.9 cm; Wt 103.0 kg
[~2021-10-13 03:54] MED LIST changes: +PANT20TA58 PO
[2021-10-13] MEDS ORDERED: IV RINGERS SOLUTION,LACTATED 1,000 ML IV SCH (04:00)
--- NOTE | 2021-10-13 04:01 | PHYS DOC ---
Past History Past Medical History: Asthma, Hypertension (KATHIA MARTINEZ MD) Past Surgical History: No Surgical History (KATHIA MARTINEZ MD) Smoking: Non-smoker Alcohol Use: None Drug Use: None (KATHIA MARTINEZ MD) General Adult HPI: HPI: ".. I am having chest pain... It woke me up out of sleep.. about 3 am.. this keep happening... they never fine anything... Dr. Choudhary got me scheduled to see pulmonary.. cardiology... and gi.. but have not been to see any one yet.. they gave me some nitro.. on way in and it really did no help.. the pain that woke me up was 9-.. since I ve been here it is only 09/01.. .." Patient is a 56 year old male who presents with above hx and complaints of chest pain. Patient states that the pain awoke him out of sleep and was rated 9 out of 10. Patient states pain was his center chest and radiated a little bit to the left. Patient states nothing made it better and nothing made it worse. S imilar to prior episodes of chest pain. Patient denies any trauma. Patient denies any fever chills. Patient denies any previous cardiac history. Patient denies any family history of onset of cardiac disorders in his age group. No history of coagulopathy with him or family members. Patient does snore. Patient denies any recent travel. Patient denies any specific ill contacts. Patient seen with previous episode on 10/05 . Patient had an echo on 09/26/2018 which showed exercise tolerance at 9 minutes and overall stress test was negative for ischemia. Patient does have a history of hypertension. Patient does have a history of hyperlipidemia , asthma and GERD. Patient does not smoke or use alcohol or illicit drugs. Patient has history of reported VSD that has closed. Patient gives a history of LVH and mild ascending aortic dilation of 3.6 cm. Patient normally follows with Dr Choudhary for care. Patient has not had COVID vaccination or flu vaccination. Patient did have Covid in June. (KATHIA MARTINEZ MD) Review of Systems: Review of Systems: Constitutional: Denies fever or chills Eyes: Denies change in visual acuity HENT: Denies nasal congestion or sore throat Respiratory: Denies cough or shortness of breath Cardiovascular: Denies chest pain or edema GI: Denies abdominal pain, nausea, vomiting, bloody stools or diarrhea : Denies dysuria Musculoskeletal: Denies back pain or joint pain Integument: Denies rash Neurologic: Denies headache, focal weakness or sensory changes Endocrine: Denies polyuria or polydipsia Lymphatic: Denies swollen glands Psychiatric: Denies depression or anxiety (KATHIA MARTINEZ MD) Family History: Family History: Noncontributory to presentation (KATHIA MARTINEZ MD) Current Medications: Current Meds: See nursing for home meds (KATHIA MARTINEZ MD) Allergies: Allergies: Allergies Coded Allergies Type Severity Reaction Last Updated Verified No Known Drug Allergies 09/26/18 No (KATHIA MARTINEZ MD) Physical Exam: PE: Constitutional: no acute distress currently, non-toxic appearance. [] HENT: Normocephalic, atraumatic, bilateral external ears normal, oropharynx moist, no oral exudates, nose normal. [] Eyes: PERRLA, EOMI, conjunctiva normal, no discharge. Classes Neck: Normal range of motion, no tenderness, supple, no stridor. [] Cardiovascular:Heart rate regular rhythm, no murmur, PMI slightly to left Lungs & Thorax: Bilateral breath sounds equal apex with scattered wheezes on auscultation [] Abdomen: Bowel sounds normal, soft, no tenderness, no masses, no pulsatile masses. [] Skin: Warm, dry, no erythema, no rash. [] Back: No tenderness, no CVA tenderness. [] Extremities: No tenderness, no cyanosis, no clubbing, ROM intact, no edema. Scar right shoulder. No cording in legs Neurologic: Alert and oriented X 3, normal motor function, normal sensory function, no focal deficits noted. [] Psychologic: Affect very anxious, judgement normal, mood normal. [] (KATHIA MARTINEZ MD) EKG: EKG: My interpretation EKG shows a sinus rhythm at 71 bpm. Some nonspecific T wave changes and anterior leads. But no findings of acute STEMI of contralateral changes. Time of EKG is 405 hours [] (KATHIA MARTINEZ MD) Radiology/Procedures: Radiology/Procedures: [][place] [address] IMAGING REPORT Signed PATIENT: KARYNA TIM ACCOUNT: [id number] : 1965 LOCATION: ER AGE: 56 SEX: M EXAM STATUS: REG ER ORD. PHYSICIAN: KATHIA MARTINEZ MD REASON: cp PROCEDURE: PORTABLE CHEST 1V XR CHEST 1V 10/13/2021 4:11 AM INDICATION: Chest pain COMPARISON: 10/05/2021 TECHNIQUE: Portable frontal view of the chest is provided. FINDINGS: The cardiomediastinal silhouette is within normal limits. Lungs are clear. There is subsegmental atelectasis at the left lung base. There are no significant pleural effusions. There is no pulmonary vascular congestion. No pneumothorax. No suspicious osseous abnormality. IMPRESSION: There is no acute cardiopulmonary process. Subsegmental atelectasis at the left lung base. Electronically signed by: Jesenia Medina MD (10/13/2021 4:19 AM) [facility] DICTATED AND SIGNED BY: JESENIA MEDINA MD DATE: 10/13/21 0417 CC: KATHIA MARTINEZ MD; PEPE CHOUDHARY MD ~MTH0 0 (KATHIA MARTINEZ MD) Heart Score: C/O Chest Pain: Yes HEART Score for Chest Pain: HEART Score for Chest Pain Response (Comments) Value History Slighlty/Non-Suspicious 0 ECG Nonspecific Repolarizatio 1 Age >45 - < 65 1 Risk Factors 1 or 2 Risk Factors 1 Total 3 Risk Factors: Risk Factors: DM, Current or recent (<one month) smoker, HTN, HLP, family history of CAD, obesity. Risk Scores: Score 0 - 3: 2.5% MACE over next 6 weeks - Discharge Home Score 4 - 6: 20.3% MACE over next 6 weeks - Admit for Clinical Observation Score 7 - 10: 72.7% MACE over next 6 weeks - Early Invasive Strategies (KATHIA MARTINEZ MD) C/O Chest Pain: Yes HEART Score for Chest Pain: HEART Score for Chest Pain Response (Comments) Value History Moderately Suspicious 1 ECG Nonspecific Repolarizatio 1 Age >45 - < 65 1 Risk Factors 1 or 2 Risk Factors 1 Troponin >1-<3x Normal Limit 1 Total 5 (SAMANTHA GARCIA MD) Course & Med Decision Making: Course & Med Decision Making Pertinent Labs and Imaging studies reviewed. (See chart for details) Endorsed to Dr. Garcia at shift change. Impression: 1. Chest pain- Atypica 2. History of hypertension 3. History of asthma 4. History of GERD [] (KATHIA MARTINEZ MD) Course & Med Decision Making Accepted patient care at shift change, pending repeat troponin. Repeat troponin elevated, discussed admission for chest pain evaluation. Patient and requesting to be transferred to . Consulted transfer center, can accept patient to Dr. Ornelas (SAMANTHA GARCIA MD) Dragon Disclaimer: Dragon Disclaimer: This electronic medical record was generated, in whole or in part, using a voice recognition dictation system. (KATHIA MARTINEZ MD) Departure Departure: Impression: Primary Impression: Elevated troponin Disposition: 02 SHORT TERM HOSPITAL Condition: STABLE Referrals: PEPE CHOUDHARY MD (PCP) Dragon Disclaimer This chart was dictated in whole or in part using Voice Recognition software in a busy, high-work load, and often noisy Emergency Department environment. It may contain unintended and wholly unrecognized errors or omissions. (KATHIA MARTINEZ MD) KATHIA MARTINEZ MD Oct 13, 2021 04:01 SAMANTHA GARCIA MD Oct 13, 2021 09:33
--- NOTE | 2021-10-13 04:15 | EKG ---
[address] [address] Test Date: 2021-10-13 Test Time: 04:05:00 Pat Name: KARYNA TIM Department: Room: Gender: M Steel Loader: CAITLYN : 1965 Requested By: KATHIA MARTINEZ Order Number: [id number] Reading MD: Measurements Intervals [place] Rate: 71 P: 41 [place]: 170 QRS: 20 QRSD: 96 T: 69 QT: 400 QTc: 440 Interpretive Statements SINUS RHYTHM T ABNORMALITY IN ANTERIOR LEADS LATERAL LEADS ABNORMAL ECG RI6.01 No previous ECG available for comparison
--- NOTE | 2021-10-13 04:21 | RAD ---
XR CHEST 1V 10/13/2021 4:11 AM INDICATION: Chest pain COMPARISON: 10/05/2021 TECHNIQUE: Portable frontal view of the chest is provided. FINDINGS: The cardiomediastinal silhouette is within normal limits. Lungs are clear. There is subsegmental atel ectasis at the left lung base. There are no significant pleural effusions. There is no pulmonary vascular congestion. No pneumothora x. No suspicious osseous abnormality. IMPRESSION: There is no acute cardiopulmonary process. Subsegmental atelectasis at the left lung base. Electronically signed by: Patricia Arciniega MD (10/13/2021 4:19 AM) JIAN
[2021-10-13 04:32] LABS: BASO # 0.1 x10^3/uL (0.0-0.2); BASO % 1 % (0-3); EOS # 0.3 x10^3/uL (0.0-0.7); EOS % 6 % (0-3); HEMOGLOBIN 14.1 g/dL (13.0-17.5); LYMPH # 1.8 x10^3/uL (1.0-4.8); LYMPH % 31 % (24-48); MEAN CORPUSCULAR HEMOGLOBIN 29 pg (25-35); MEAN CORPUSCULAR HGB CONC 34 g/dL (31-37); MEAN CORPUSCULAR VOLUME 88 fL (79-100); MONO # 0.4 x10^3/uL (0.0-1.1); MONO % 6 % (0-9); NEUT # 3.4 x10^3uL (1.8-7.7); NEUT % 56 % (31-73); PLATELET COUNT 259 x10^3/uL (140-400); RED BLOOD COUNT 4.81 x10^6/uL (4.30-5.70); RED CELL DISTRIBUTION WIDTH 14.3 % (11.5-14.5); WHITE BLOOD COUNT 5.9 x10^3/uL (4.0-11.0)
[2021-10-13 04:43] LABS: CALCIUM 9.3 mg/dL (8.5-10.1); GFR 77.6; POTASSIUM 3.8 mmol/L (3.5-5.1)
[2021-10-13 04:57] LABS: ALBUMIN 3.6 g/dL (3.4-5.0); DIRECT BILIRUBIN 0.1 mg/dL (0.0-0.2); MAGNESIUM 2.3 mg/dL (1.8-2.4); TOTAL BILIRUBIN 0.3 mg/dL (0.2-1.0); TOTAL PROTEIN 6.9 g/dL (6.4-8.2)
--- NOTE | 2021-10-13 05:19 | EKG ---
[address] [address] Test Date: 2021-10-13 Test Time: 05:08:57 Pat Name: KARYNA TIM Department: Room: Gender: M Swimmer: CAITLYN : 1965 Requested By: KATHIA MARTINEZ Order Number: [id number] Reading MD: Measurements Intervals [place] Rate: 68 P: 36 [place]: 168 QRS: 9 QRSD: 96 T: 67 QT: 394 QTc: 424 Interpretive Statements SINUS RHYTHM T ABNORMALITY IN ANTERIOR LEADS LATERAL LEADS ABNORMAL ECG RI6.01 No previous ECG available for comparison
[2021-10-13 05:24] LABS: BARBITURATES NEG (NEG); BENZODIAZEPINES NEG (NEG); CANNABINOIDS NEG (NEG); COCAINE NEG (NEG); METHADONE NEG (NEG); OPIATES NEG (NEG); PHENCYCLIDINE NEG (NEG)
[2021-10-13 05:26] LABS: AMPHETAMINE/METHAMPHETAMINE NEG (NEG)
[2021-10-13 05:27] LABS: CLARITY,URINE CLEAR; COLOR,URINE YELLOW; GLUCOSE,URINE NEG (NEG); NITRITE,URINE NEG (NEG); UROBILINOGEN,URINE 0.2 mg/dL (0.2 mg/dL)
[2021-10-13 05:28] LABS: BACTERIA,URINE 0 /HPF (0-FEW); RBC,URINE 0 /HPF (0-2); SQUAMOUS EPITHELIAL CELL,UR OCC /LPF; WBC,URINE RARE /HPF (0-4)
--- NOTE | 2021-10-13 07:29 | EKG ---
[address] [address] Test Date: 2021-10-13 Test Time: 07:24:45 Pat Name: KARYNA TIM Department: Room: Gender: M Associate Professor Plant Pathology: BRIDGETT : 1965 Requested By: SAMANTHA GARCIA Order Number: [id number] Reading MD: Russ Horan Measurements Intervals [place] Rate: 65 P: 39 [place]: 170 QRS: 18 QRSD: 96 T: 54 QT: 394 QTc: 410 Interpretive Statements SINUS RHYTHM T ABNORMALITY IN ANTERIOR LEADS ABNORMAL ECG Electronically Signed On 10-13-2021 17:02:13 QUALITY IMPROVEMENT COORDINATOR (RN) by Russ Horan
[2021-10-13 09:19] VITALS: BP 165/93
[2021-10-13 09:39] LABS: INFLUENZA A PATIENT NEGATIVE (NEGATIVE); INFLUENZA B PATIENT NEGATIVE (NEGATIVE)
[2021-10-13 15:25] LABS: CHOLESTEROL/HDL RATIO 4.3; THYROID STIM HORMONE (TSH) 5.759 uIU/mL (0.358-3.740)
== END 2021-10-13 09:58 | disposition short-term general hospital (02) ==
LOC: ER 03:54
DX: R77.8 Other specified abnormalities of plasma proteins (principal); R07.89 Other chest pain; I10 Essential (primary) hypertension; J45.909 Unspecified asthma, uncomplicated; K21.9 Gastro-esophageal reflux disease without esophagitis; E78.5 Hyperlipidemia, unspecified; Z20.822 Contact with and (suspected) exposure to COVID-19
CPT/HCPCS: 36415; 71045; 80048; 80061; 80076; 80307; 81001; 82550; 83690; 83735; 83880; 84443; 84484; 85025; 85379; 85610; 85730; 87428; 93005; 99285